=== PATIENT | male | born 1995 | race Caucasian/White ===

== ENCOUNTER 2020-01-24 02:24 | Emergency (ER) | payer BC ==
[~2020-01-24] VITALS: Ht 182.9 cm; Wt 113.4 kg
[2020-01-24 02:26] VITALS: Ht 182.9 cm; Wt 113.4 kg
[2020-01-24 03:12] LABS: BASOPHIL % 0.4 % (0-2); PLATELET COUNT 236 x10^3mcL (130-400); RED CELL DISTRIBUTION WIDTH 13.8 % (11.5-14.5)
[2020-01-24 03:14] LABS: CALCIUM 8.9 mg/dL (8.5-10.1); CARBON DIOXIDE 30.5 mmol/L (21-32); CHLORIDE SERUM 104 mmol/L (98-107); CREATININE SERUM 1.4 mg/dL (0.7-1.3); GFR1 > 60 mL/min; GLUCOSE SERUM 120 mg/dL (74-106); POTASSIUM SERUM 3.4 mmol/L (3.5-5.1); SODIUM SERUM 140 mmol/L (136-145)
[2020-01-24 03:18] LABS: ALBUMIN 4.1 g/dL (3.4-5.0); ALKALINE PHOSPHATASE 94 U/L (46-116); ALT/SGPT 174 U/L (16-63); AST/SGOT 43 U/L (15-37); BILIRUBIN TOTAL 2.14 mg/dL (0.20-1.00); CHOLESTEROL 126 mg/dL (<200); CHOLESTEROL/HDL RATIO 4.7; HDL CHOLESTEROL 27 mg/dL (40-60); LIPASE 173 IU/L (73-393); TRIGLYCERIDES 85 mg/dL (<150)
[2020-01-24 03:23] LABS: microscopic required? NO
[2020-01-24 03:30] LABS: UA SPECIFIC GRAVITY 1.025 (1.005-1.035); urine erythrocyte NEGATIVE (NEGATIVE)
[2020-01-24 06:25] VITALS: BP 149/87
== END 2020-01-24 06:25 | disposition home or self-care (01) ==
LOC: ED 02:24
PROVIDERS: Specialist
DX: R10.813 Right lower quadrant abdominal tenderness (principal); R10.814 Left lower quadrant abdominal tenderness; R11.10 Vomiting, unspecified
CPT/HCPCS: J1885; J7030